=== PATIENT | male | born 1960 | race Caucasian/White ===

== ENCOUNTER 2016-10-24 12:22 | Emergency (ER) | payer OTHER ==
[2016-10-24 12:31] VITALS: RESP 17
[2016-10-24] MEDS ORDERED: IOPAMIDOL (ISOVUE-300) 100 ML BTL IV ONE (13:41)
[2016-10-24 13:42] LABS: % IMMATURE GRANULYOCYTES 0.3 % (0.0-1.1); ABSOLUTE IMMATURE GRANULOCYTES 0.02 10^3/uL (0.00-0.10); ADD DIFF? NO; ADD MORPH? NO; ADD SCAN? NO; ATYPICAL LYMPHOCYTE FLAG 10 (0-99); FRAGMENT RBC FLAG 0 (0-99); HEMATOCRIT 47.9 % (40.0-51.0); LEFT SHIFT FLG 0 (0-99); LIPEMIA HEMOLYSIS FLAG 80 (0-99); MEAN CELL HEMOGLOBIN 32.2 pg (27.9-34.1); MEAN CELL HEMOGLOBIN CONCENTR. 33.4 g/dL (32.4-36.7); MEAN CELL VOLUME 96.4 fL (81.5-99.8); MEAN PLATELET VOLUME 11.6 fL (8.7-11.7); PLATELET CLUMPS FLAG 10 (0-99); PLATELET COUNT 240 10^3/uL (150-400); RED BLOOD CELL COUNT 4.97 10^6/uL (4.40-6.38); RED CELL DISTRIBUTION WIDTH 13.9 % (11.5-15.2)
[2016-10-24 13:49] LABS: ANION GAP 13 mEq/L (8-16); CALCIUM 9.7 mg/dL (8.5-10.4); CARBON DIOXIDE 23 mEq/l (22-31); CHLORIDE 105 mEq/L (97-110); CREATININE 0.8 mg/dL (0.7-1.3); GLOMERULAR FILTRATION RATE > 60; GLUCOSE 83 mg/dL (70-100); POTASSIUM 4.3 mEq/L (3.5-5.2); SODIUM 141 mEq/L (134-144)
[2016-10-24 14:00] LABS: COLOR PALE YELLOW; LEUKOCYTE ESTERASE,URINE NEGATIVE (NEGATIVE); NITRITE,URINE NEGATIVE (NEGATIVE)
--- NOTE | 2016-10-24 14:05 | EDPHY ---
H & P Time Seen by Provider: 10/24/16 13:04 HPI/ROS: CHIEF COMPLAINT: Left lower quadrant abdominal pain HISTORY OF PRESENT ILLNESS: This 55-year-old man presents with 6 days of abdominal pain. He was snowboarding 6 days ago and felt like he pulled a muscle in the right side of his abdomen. Subsequently developed pain in his left groin left side of his abdomen as lasted for the last 6 days not associated with vomiting or diarrhea. Not particularly positional. No urinary symptoms or hematuria. Does not radiate. REVIEW OF SYSTEMS: Eye: no change in vision ENT: no sore throat Cardiac: no chest pain or syncope Pulmonary: no cough or SOB Abdomen: HPI Musculoskeletal: no back pain Skin: no rash Neuro: no headache Constitutional: no fever : no urinary symptoms A comprehensive 10 point review of systems is otherwise negative aside from elements mentioned in the history of present illness. PAST MEDICAL HISTORY: Orthopedic surgery otherwise negative Social history: Nonsmoker General Appearance: Alert and conversant, cooperative. Eyes: No scleral icterus. ENT, Mouth: Normal mucous membranes. Respiratory: Normal respiratory effort, breath sounds equal, lungs are clear to auscultation. Cardiovascular: Regular rate and rhythm. Gastrointestinal: Left lower quadrant tenderness but no guarding or rebound, bowel sounds present. No [place] sign. No McBurney's point tenderness. Neurological: Alert and oriented x3. Normally conversant. Face symmetric, normal movement and sensation in all extremities. Skin: Warm and dry, no rashes. Musculoskeletal: No peripheral edema and no joint swelling. Psychiatric: Not agitated. Emergency Department course/MDM: CT scanning discussed with the patient and consented. Pain medication declined. 1425: Normal CBC chemistry in urine, to CT scan. 1515: Results discussed with the patient. He appears to be a good candidate for outpatient treatment. Afebrile and nontoxic, nonsurgical abdominal examination, no perforation or abscess seen on CT. Smoking Status: Current some day smoker Constitutional: Initial Vital Signs Temperature (C) 36.6 C 10/24/16 12:28 Heart Rate 69 10/24/16 12:28 Respiratory Rate 17 10/24/16 12:28 Blood Pressure 142/95 H 10/24/16 12:28 O2 Sat (%) 95 10/24/16 12:28 O2 Delivery Mode Room Air Allergies/Adverse Reactions: CATS Allergy (Mild, Uncoded 10/24/16 12:27) SNEEZING/ITCHY NECK Home Medications: Medication Instructions Recorded Amoxicillin/Clavulanate Pot 875 mg PO BID #14 tab 10/24/16 [Augmentin 875 mg tab] Medical Decision Making - Diagnostics Imaging: CT reviewed with Dr. Bauman at 3:00 p.m. shows mild sigmoid diverticulitis without perforation or abscess. Differential Diagnosis: Differential considered including but not limited to diverticulitis, spleen injury, hernia, renal colic or UTI. - Data Points Laboratory Results: Laboratory Results 10/24/16 12:50 10/24/16 12:50 10/24/16 10/24/16 10/24/16 13:40 13:23 12:50 WBC RBC Hgb POC Hgb 15.6 gm/dL gm/dL (14.5-17.3) Hct POC Hct 46 % % (42.8-50.6) MCV MCH MCHC RDW Plt Count MPV Neut % (Auto) Lymph % (Auto) [place] % (Auto) Eos % (Auto) Baso % (Auto) Nucleat RBC Rel Count Absolute Neuts (auto) Absolute Lymphs (auto) Absolute Monos (auto) Absolute Eos (auto) Absolute Basos (auto) Absolute Nucleated RBC Immature Gran % Immature Gran # POC Sodium 141 mEq/L mEq/L (134-144) Sodium 141 mEq/L mEq/L (134-144) POC Potassium 3.9 mEq/L mEq/L (3.3-5.0) Potassium 4.3 mEq/L mEq/L (3.5-5.2) POC Chloride 103 mEq/L mEq/L (96-108) Chloride 105 mEq/L mEq/L (97-110) Carbon Dioxide 23 mEq/l mEq/l (22-31) Anion Gap 13 mEq/L mEq/L (8-16) POC BUN 10 mg/dL mg/dL (7-23) BUN 12 mg/dL mg/dL (7-23) Creatinine 0.8 mg/dL mg/dL (0.7-1.3) POC Creatinine 0.8 mg/dL mg/dL (0.8-1.5) Estimated GFR > 60 Glucose 83 mg/dL mg/dL (70-100) POC Glucose 84 mg/dL mg/dL (70-100) Calcium 9.7 mg/dL mg/dL (8.5-10.4) Urine Color PALE YELLOW Urine Appearance CLEAR Urine pH 6.0 (5.0-7.5) Ur Specific [place] 1.003 (1.002-1.030) Urine Protein NEGATIVE (NEGATIVE) Urine Ketones NEGATIVE (NEGATIVE) Urine Blood NEGATIVE (NEGATIVE) Urine Nitrate NEGATIVE (NEGATIVE) Urine Bilirubin NEGATIVE (NEGATIVE) Urine Urobilinogen NEGATIVE EU EU (0.2-1.0) Ur Leukocyte Esterase NEGATIVE (NEGATIVE) Ur Culture Indicated? NOT INDICATED (NI) Urine Glucose NEGATIVE (NEGATIVE) 10/24/16 12:50 WBC 6.88 10^3/uL 10^3/uL (3.80-9.50) RBC 4.97 10^6/uL 10^6/uL (4.40-6.38) Hgb 16.0 g/dL g/dL (13.7-17.5) POC Hgb Hct 47.9 % % (40.0-51.0) POC Hct MCV 96.4 fL fL (81.5-99.8) MCH 32.2 pg pg (27.9-34.1) MCHC 33.4 g/dL g/dL (32.4-36.7) RDW 13.9 % % (11.5-15.2) Plt Count 240 10^3/uL 10^3/uL (150-400) MPV 11.6 fL fL (8.7-11.7) Neut % (Auto) 63.5 % % (39.3-74.2) Lymph % (Auto) 24.0 % % (15.0-45.0) [place] % (Auto) 11.0 % % (4.5-13.0) Eos % (Auto) 0.9 % % (0.6-7.6) Baso % (Auto) 0.3 % % (0.3-1.7) Nucleat RBC Rel Count 0.0 % % (0.0-0.2) Absolute Neuts (auto) 4.37 10^3/uL 10^3/uL (1.70-6.50) Absolute Lymphs (auto) 1.65 10^3/uL 10^3/uL (1.00-3.00) Absolute Monos (auto) 0.76 10^3/uL 10^3/uL (0.30-0.80) Absolute Eos (auto) 0.06 10^3/uL 10^3/uL (0.03-0.40) Absolute Basos (auto) 0.02 10^3/uL 10^3/uL (0.02-0.10) Absolute Nucleated RBC 0.00 10^3/uL 10^3/uL (0-0.01) Immature Gran % 0.3 % % (0.0-1.1) Immature Gran # 0.02 10^3/uL 10^3/uL (0.00-0.10) POC Sodium Sodium POC Potassium Potassium POC Chloride Chloride Carbon Dioxide Anion Gap POC BUN BUN Creatinine POC Creatinine Estimated GFR Glucose POC Glucose Calcium Urine Color Urine Appearance Urine pH Ur Specific [place] Urine Protein Urine Ketones Urine Blood Urine Nitrate Urine Bilirubin Urine Urobilinogen Ur Leukocyte Esterase Ur Culture Indicated? Urine Glucose Point of Care Test Results: 10/24/16 13:23 POC Sodium 141 POC Potassium 3.9 POC Chloride 103 POC BUN 10 POC Creatinine 0.8 POC Glucose 84 Departure - Departure Disposition: Home, Routine, Self-Care Clinical Impression: Diverticulitis Qualifiers: Diverticulitis site: large intestine Diverticulitis bleeding: without bleeding Diverticulitis complication: without perforation or abscess Qualified Code(s): K57.32 - Diverticulitis of large intestine without perforation or abscess without bleeding Condition: Good Instructions: Diverticulitis (ED) Referrals: Natalie Medina MD [Primary Care Provider] - As per Instructions Prescriptions: Amoxicillin/Clavulanate Pot [Augmentin 875 mg tab] 875 mg PO BID #14 tab
[2016-10-24 15:47] VITALS: BP 143/95; PULSE 78; TEMP 98.1; O2SAT 96
== END 2016-10-24 15:46 | disposition home or self-care (01) ==
DX: K57.32 Diverticulitis of large intestine without perforation or abscess without bleeding (principal); F17.200 Nicotine dependence, unspecified, uncomplicated
CPT/HCPCS: 82947-QW; Q9967